=== PATIENT | female | born 2000 | race Caucasian/White ===

== ENCOUNTER 2021-04-25 00:27 | Inpatient (IN) ==
[2021-04-25] MEDS ORDERED: miSOPROStoL 50 MCG TAB PO ONE (01:12)
[2021-04-25] MEDS ORDERED: OXYTOCIN 30 UNITS/500 ML BAG IV PRN ×2 (01:12→01:31)
--- NOTE | 2021-04-25 01:31 | History & Physical Report ---
Date of Service April 25, 2021 Assessment & Plan (1) Spontaneous rupture of amniotic membranes: Plan: 20-year-old at 40 weeks and 1 day gestation presenting with SROM, Vital signs stable afebrile, heart rate reassuring, GBS negative, Irregular contraction pattern, Plan to admit, monitor, IV fluids, labs. Discussed to augment labor with low-dose Pitocin to decrease latency and risk of intermittent infection. Patient desires augmentation of labor with Pitocin. All questions were answered. History of Present Illness Primary Care Provider: NO PCP Patient is a 20-year-old at 40 weeks and 1 day of gestation who presented to labor and delivery with spontaneous rupture of membranes at 11 PM on April 24. It was a big gush and has been trickling clear fluid since then. Denies vaginal bleeding, abdominal pain, fever chills, nausea vomiting. She reports good movements. She started to feel mild contractions every 4 to 5 minutes. Her has been uncomplicated except tobacco use during . GBS was negative. 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 Beliefs That Will Affect Care: None marital status: Current Living Situation: Family Current Living Situation Comment: Lives with KRISTIN's parents, his 3 sisters, and two children Other Information That Helps Us Care for You: No Feels Safe at Home: Yes Safety Concerns: Feels Safe At This Time Assistive Devices: None CORRECTIONS COUNSELOR History Denies history of STDs including chlamydia gonorrhea or herpes Review of Systems as per Subjective / HPI Physical Exam Constitutional: WD/WN, vitals as above well developed and well nourished Comfortable, no acute not in acute distress Gastrointestinal (Abdomen): Inspection/Auscultation: abdomen normal to inspection and + abdomen distended (Gravid Vladimir 7 pounds) Genitourinary: normal external appearance OB Exam Abdomen: + vertex (Confirmed with bedside ultrasound) Manual OB Exam: + cervical dilation 1 cm, + cervical effacement 80% and + station -2 OB Exam Monitor Tracing: + external uterine monitor used and + category I Results & Data ([facility]) Vital Signs (Past 12 Hours) Vital Signs Temp Pulse Resp BP 04/25/21 00:49 37.3 C 97 H 18 126/75 04/25/21 00:45 37.3 C 97 H 18 126/75
[2021-04-25 01:49] LABS: Hematocrit (blood only) 34.9 % (37-47); Hemoglobin 12.3 g/dL (12.0-16.0); Mean Corpuscular Hgb Conc 35.2 g/dL (32-36); Mean Corpuscular Volume 93.6 fL (80-100); Mean Platelet Volume 10.2 fL (7.4-10.4); Platelet Count 314 K/uL (130-400); RDW Coefficient of Variation 13.1 % (11.5-14.5); RDW Standard Deviation 44.8 fL (36.4-46.3); Red Blood Count 3.73 M/uL (4.2-5.4); White Blood Count 14.75 K/uL (4.8-10.8)
[2021-04-25] MEDS: LACTATED RINGER'S 1,000 ML IV PRN ×4 (02:16→19:42)
[2021-04-25] MEDS ORDERED: BUPIVACAINE 0.25% 30 ML VIAL ONE (04:19)
[2021-04-25] MEDS ORDERED: ePHEDrine sulfate 50 MG/ML AMP ONE (04:19)
[2021-04-25] MEDS ORDERED: fentaNYL citrate 100 MCG/2 ML VIAL ONE (04:19)
[2021-04-25] MEDS ORDERED: SODIUM CHLORIDE 0.9% INJ 10 ML VIAL ONE (04:19)
[2021-04-25] MEDS ORDERED: fentaNYL 2MCG/ML ROPIVACAINE 1.25MG/ML 100 ML BAG EPI ONE (04:20)
[2021-04-25] MEDS ORDERED: ONDANSETRON INJ 2 MG/ML 2 ML VIAL IV PRN (04:37)
[2021-04-25] MEDS ORDERED: ePHEDrine sulfate 50 MG/ML AMP IV PRN (04:37)
[2021-04-25] MEDS ORDERED: NALOXONE HCL 1 MG in SODIUM CHLORIDE 0.9% 1000ML 1,000 ML IV PRN (04:37)
[2021-04-25] MEDS ORDERED: NALBUPHINE HCL INJ 10 MG/ML AMP IV PRN (04:37)
[2021-04-25] MEDS ORDERED: NALOXONE HCL 0.4 MG/1 ML VIAL/CARP IV PRN (04:37)
--- NOTE | 2021-04-25 04:39 | Anesthesiology Consultation ---
Date of Service April 25, 2021 Assessment & Plan (1) Encounter for pre-operative examination: Chart Review Chart Review: Patient NOT seen in Pre Admission Testing and Acceptable Risk for Labor Epidural Consults Requested none History Height/Weight Height: 5 ft 5 in Weight: 86.636 kg Allergies Allergy/AdvReac Type Severity Reaction Status Date / Time cetirizine [From [facility]] Allergy Hives Verified 04/25/21 01:02 Medications Home Medications Medication Instructions Recorded Confirmed Last Taken vit no.95-ferrous 1 tab PO DAILY 04/25/21 04/25/21 04/24/21 fumarate 28 mg-folic acid 800 mcg tablet () Active Medications Generic Name Dose Route Start Last Admin Trade Name Freq PRN Reason Stop Dose Admin Lactated Ringer's 1,000 mls @ 150 mls/hr 04/25/21 01:12 04/25/21 04:29 Lr IV 04/27/21 01:11 999 mls/hr .[id number] PRN Infusion L&D Protocol Protocol Oxytocin 30 units in 500 mls @ 3 mls/hr 04/25/21 01:31 04/25/21 03:30 Pitocin IV 04/27/21 01:30 0.18 units/hr .Q24H PRN 3 mls/hr Labor Induction/Augmentation Titration Protocol 0.18 UNITS/HR Past Medical History Medical History Anxiety Migraine Exercise / Class Metabolic Activity II 4-5 Yardwork/Stairs/Walk up hill Past Anesthesia History No Hx of Anesthesia Complications and No Family Hx of Anesthesia Complications History of PONV No Hx of PONV and No Hx of Motion Sickness Social History Smoking Status: Current every day smoker tobacco type: cigarettes Smoking cigarettes per day: 8 Do You Dip or Chew Tobacco: No Hx Alcohol Use: No Hx Substance Use: No Physical Exam Vital Signs Last Vital Signs Temp 36.9 C 04/25/21 03:00 Pulse 63 04/25/21 04:59 Resp 18 04/25/21 04:27 BP 114/75 04/25/21 04:59 Testing Laboratory Results 04/25/21 01:26
--- NOTE | 2021-04-25 14:42 | Labor Progress Brief Note ---
Date of Service April 25, 2021 Assessment & Plan Admission and Anticipated Discharge Date Admission Date: April 25, 2021 Physical Exam Genitourinary: Manual OB Exam: + cervical dilation 4 cm, + cervical effacement 90% and + station -1 OB Exam Monitor Tracing: + external FHT monitor used, + external uterine monitor used, + category I and + normal FHT variability Results & Data ([facility]) Vital Signs (Past 12 Hours) Vital Signs Temp Pulse Resp BP Pulse Ox 04/25/21 14:41 85 94 04/25/21 14:38 69 98 04/25/21 14:33 74 98 04/25/21 14:32 62 109/64 04/25/21 14:28 66 97 04/25/21 14:23 64 97 04/25/21 14:18 66 98 04/25/21 14:16 63 122/83 04/25/21 14:13 64 97 04/25/21 14:08 66 97 04/25/21 14:03 66 98 04/25/21 14:02 71 122/82 04/25/21 13:58 74 96 04/25/21 13:53 69 98 04/25/21 13:48 64 96 04/25/21 13:46 64 121/75 04/25/21 13:43 70 95 04/25/21 13:38 74 98 04/25/21 13:33 64 96 04/25/21 13:31 56 L 108/59 L 04/25/21 13:28 65 95 04/25/21 13:23 63 96 04/25/21 13:19 65 91 04/25/21 13:18 69 97 04/25/21 13:16 59 L 115/61 04/25/21 13:13 59 L 96 04/25/21 13:08 60 97 04/25/21 13:03 61 95 04/25/21 13:02 60 112/64 04/25/21 12:58 60 97 04/25/21 12:53 64 97 04/25/21 12:48 69 99 04/25/21 12:47 62 119/76 04/25/21 12:43 68 97 04/25/21 12:38 70 97 04/25/21 12:33 36.5 C 69 18 115/67 97 04/25/21 12:28 76 98 04/25/21 12:23 70 97 04/25/21 12:18 63 97 04/25/21 12:17 63 111/51 L 04/25/21 12:16 75 92 04/25/21 12:13 66 96 04/25/21 12:08 57 L 97 04/25/21 12:03 67 105/61 97 04/25/21 12:01 74 92 04/25/21 11:58 63 96 04/25/21 11:53 65 95 04/25/21 11:48 64 96 04/25/21 11:46 66 101/55 L 04/25/21 11:43 57 L 96 04/25/21 11:38 61 96 04/25/21 11:33 63 97 04/25/21 11:31 75 92/50 L 04/25/21 11:28 70 96 04/25/21 11:23 62 97 04/25/21 11:18 71 96 04/25/21 11:17 68 108/59 L 04/25/21 11:14 82 93 04/25/21 11:13 65 96 04/25/21 11:08 81 97 04/25/21 11:03 69 96 04/25/21 11:01 63 116/61 04/25/21 10:58 68 97 04/25/21 10:53 78 98 04/25/21 10:49 82 94 04/25/21 10:48 65 98 04/25/21 10:47 76 112/68 04/25/21 10:43 66 97 04/25/21 10:38 65 98 04/25/21 10:35 82 94 04/25/21 10:33 68 96 04/25/21 10:31 36.5 C 64 18 110/68 04/25/21 10:28 79 98 04/25/21 10:23 73 98 04/25/21 10:18 54 L 96 04/25/21 10:17 60 109/57 L 04/25/21 10:15 64 93 04/25/21 10:13 62 96 04/25/21 10:08 61 96 04/25/21 10:03 59 L 97 04/25/21 10:01 59 L 108/58 L 04/25/21 09:58 62 95 04/25/21 09:53 63 96 04/25/21 09:49 63 94 04/25/21 09:48 61 95 04/25/21 09:46 65 105/55 L 04/25/21 09:43 60 96 04/25/21 09:38 67 96 04/25/21 09:37 62 93 04/25/21 09:33 57 L 97 04/25/21 09:31 60 109/57 L 04/25/21 09:28 61 96 04/25/21 09:23 63 96 04/25/21 09:18 64 96 04/25/21 09:16 60 111/54 L 04/25/21 09:14 66 91 04/25/21 09:13 62 95 04/25/21 09:08 65 95 04/25/21 09:03 64 95 04/25/21 09:02 66 106/59 L 04/25/21 09:01 69 94 04/25/21 08:58 69 95 04/25/21 08:54 68 94 04/25/21 08:53 63 95 04/25/21 08:49 66 94 04/25/21 08:48 65 95 04/25/21 08:46 66 109/54 L 04/25/21 08:43 66 95 04/25/21 08:39 67 94 04/25/21 08:38 71 95 04/25/21 08:33 69 95 04/25/21 08:32 65 94 04/25/21 08:31 65 125/58 L 04/25/21 08:28 66 95 04/25/21 08:26 73 94 04/25/21 08:23 59 L 94 04/25/21 08:19 60 94 04/25/21 08:18 67 95 04/25/21 08:17 64 104/55 L 04/25/21 08:13 68 97 04/25/21 08:08 65 95 04/25/21 08:03 83 97 04/25/21 08:01 62 113/68 04/25/21 07:58 58 L 97 04/25/21 07:56 69 92 04/25/21 07:53 68 95 04/25/21 07:48 70 96 04/25/21 07:46 65 108/56 L 04/25/21 07:43 69 95 04/25/21 07:38 72 97 04/25/21 07:33 72 94 04/25/21 07:31 69 100/61 04/25/21 07:28 67 95 04/25/21 07:23 63 97 04/25/21 07:18 68 96 04/25/21 07:16 64 102/56 L 04/25/21 07:13 80 96 04/25/21 07:08 71 96 04/25/21 07:03 76 96 04/25/21 07:02 68 100/50 L 04/25/21 06:58 74 94 04/25/21 06:53 76 96 04/25/21 06:48 71 96 04/25/21 06:46 56 L 91/53 L 04/25/21 06:43 72 95 04/25/21 06:38 69 96 04/25/21 06:33 69 96 04/25/21 06:32 69 103/52 L 04/25/21 06:28 67 95 04/25/21 06:23 71 96 04/25/21 06:18 70 95 04/25/21 06:17 69 95/52 L 04/25/21 06:13 70 95 04/25/21 06:11 68 94 04/25/21 06:08 66 96 04/25/21 06:03 69 95 04/25/21 06:01 81 111/59 L 04/25/21 05:59 67 94 04/25/21 05:58 69 94 04/25/21 05:54 73 94 04/25/21 05:53 65 96 04/25/21 05:48 75 94 04/25/21 05:46 64 113/55 L 04/25/21 05:43 68 94 04/25/21 05:38 66 95 04/25/21 05:34 71 94 04/25/21 05:33 65 96 04/25/21 05:30 36.5 C 04/25/21 05:29 70 94/50 L 94 04/25/21 05:28 66 95 04/25/21 05:24 75 102/56 L 04/25/21 05:23 72 95 04/25/21 05:19 69 105/55 L 04/25/21 05:18 76 94 04/25/21 05:13 64 116/59 L 97 04/25/21 05:11 71 110/64 04/25/21 05:09 72 97/54 L 04/25/21 05:08 68 96 04/25/21 05:07 68 101/54 L 04/25/21 05:05 76 110/55 L 04/25/21 05:03 79 112/59 L 04/25/21 05:01 61 111/65 04/25/21 04:59 63 114/75 04/25/21 04:57 70 111/68 04/25/21 04:27 71 18 116/63 04/25/21 03:23 81 18 104/55 L 04/25/21 03:00 36.9 C
[2021-04-25] MEDS: fentaNYL 2MCG/ML ROPIVACAINE 1.25MG/ML 100 ML BAG EPI PRN ×2 (14:45→19:43)
--- NOTE | 2021-04-25 23:19 | Labor Progress Brief Note ---
Date of Service April 25, 2021 Assessment & Plan Admission and Anticipated Discharge Date Admission Date: April 25, 2021 Physical Exam Genitourinary: Manual OB Exam: + cervical dilation 9 cm, + cervical effacement 100% and + station + 1 OB Exam Monitor Tracing: + external FHT monitor used, + external uterine monitor used, + category I and + normal FHT variability Results & Data ([facility]) Vital Signs (Past 12 Hours) Vital Signs Temp Pulse Resp BP Pulse Ox 04/25/21 23:14 80 95 04/25/21 23:09 80 93 04/25/21 23:06 36.7 C 18 04/25/21 23:04 79 92 04/25/21 23:03 71 136/61 04/25/21 22:59 77 99 04/25/21 22:57 77 94 04/25/21 22:54 73 98 04/25/21 22:49 81 98 04/25/21 22:47 92 H 134/78 04/25/21 22:44 87 99 04/25/21 22:39 79 99 04/25/21 22:34 81 100 04/25/21 22:31 75 118/70 04/25/21 22:29 68 99 04/25/21 22:26 82 92 04/25/21 22:24 77 99 04/25/21 22:19 63 97 04/25/21 22:17 64 126/80 04/25/21 22:15 60 93 04/25/21 22:14 62 99 04/25/21 22:09 59 L 92 04/25/21 22:04 59 L 96 04/25/21 22:02 54 L 123/67 04/25/21 21:59 60 92 04/25/21 21:58 73 89 L 04/25/21 21:54 52 L 97 04/25/21 21:53 59 L 92 04/25/21 21:49 66 95 04/25/21 21:47 64 114/60 94 04/25/21 21:44 64 96 04/25/21 21:39 65 96 04/25/21 21:34 61 97 04/25/21 21:32 61 114/59 L 04/25/21 21:29 63 95 04/25/21 21:24 67 96 04/25/21 21:20 77 93 04/25/21 21:19 73 97 08/13/21 21:16 68 99/53 L 04/25/21 21:14 70 94 04/25/21 21:09 69 94 04/25/21 21:07 71 94 04/25/21 21:04 73 96 04/25/21 21:02 69 94 04/25/21 21:01 68 99/53 L 04/25/21 20:59 70 94 04/25/21 20:56 71 94 04/25/21 20:54 73 95 04/25/21 20:49 67 97 04/25/21 20:46 74 105/59 L 04/25/21 20:44 70 94 04/25/21 20:39 72 97 04/25/21 20:34 75 98 04/25/21 20:33 71 111/55 L 04/25/21 20:32 36.9 C 18 04/25/21 20:30 98 H 93 04/25/21 20:29 113 H 97 04/25/21 20:24 65 89 L 04/25/21 20:23 62 89 L 04/25/21 20:19 63 96 04/25/21 20:17 67 94 04/25/21 20:16 64 120/77 04/25/21 20:14 60 94 04/25/21 20:10 64 94 04/25/21 20:09 66 100 04/25/21 20:04 60 97 04/25/21 20:03 71 121/66 94 04/25/21 19:59 64 96 04/25/21 19:54 54 L 91 04/25/21 19:52 61 92 04/25/21 19:49 68 99 04/25/21 19:47 73 128/63 04/25/21 19:46 68 93 04/25/21 19:44 62 100 04/25/21 19:41 18 04/25/21 19:40 71 92 04/25/21 19:39 61 98 04/25/21 19:34 62 100 04/25/21 19:33 61 93 04/25/21 19:31 57 L 115/70 04/25/21 19:29 36.7 C 62 18 98 04/25/21 19:28 58 L 93 04/25/21 19:24 58 L 98 04/25/21 19:23 64 91 04/25/21 19:19 62 97 04/25/21 19:17 67 114/70 04/25/21 19:14 56 L 99 04/25/21 19:12 57 L 92 04/25/21 19:09 61 97 04/25/21 19:04 62 94 04/25/21 19:01 62 125/62 04/25/21 18:59 64 95 04/25/21 18:58 66 94 04/25/21 18:54 62 95 04/25/21 18:50 66 94 04/25/21 18:49 60 96 04/25/21 18:46 65 118/64 04/25/21 18:44 56 L 96 04/25/21 18:43 63 91 04/25/21 18:39 63 97 04/25/21 18:37 66 91 04/25/21 18:34 78 90 04/25/21 18:32 65 94 04/25/21 18:31 65 116/61 04/25/21 18:29 66 94 04/25/21 18:25 66 94 04/25/21 18:24 66 94 04/25/21 18:19 65 94 04/25/21 18:17 67 121/64 04/25/21 18:14 66 94 04/25/21 18:11 68 94 04/25/21 18:09 66 96 04/25/21 18:05 68 93 04/25/21 18:04 66 96 04/25/21 18:02 67 116/63 04/25/21 17:59 68 97 04/25/21 17:54 86 91 04/25/21 17:49 74 99 04/25/21 17:48 36.7 C 18 04/25/21 17:47 75 123/60 93 04/25/21 17:44 64 94 04/25/21 17:41 65 94 04/25/21 17:39 67 95 04/25/21 17:34 61 96 04/25/21 17:32 60 120/69 04/25/21 17:29 61 95 04/25/21 17:26 74 94 04/25/21 17:24 59 L 96 04/25/21 17:19 62 96 04/25/21 17:17 57 L 117/73 04/25/21 17:14 67 96 04/25/21 17:11 190 H 90 04/25/21 17:09 69 97 04/25/21 17:05 71 94 04/25/21 17:04 66 97 04/25/21 17:02 72 116/55 L 04/25/21 16:59 70 97 04/25/21 16:54 66 96 04/25/21 16:49 71 96 04/25/21 16:47 79 116/69 04/25/21 16:44 72 97 04/25/21 16:39 69 98 04/25/21 16:34 94 H 98 04/25/21 16:31 70 128/64 04/25/21 16:29 69 97 04/25/21 16:24 73 98 04/25/21 16:19 89 97 04/25/21 16:16 76 124/77 04/25/21 16:14 77 98 04/25/21 16:09 75 99 04/25/21 16:05 78 94 04/25/21 16:04 74 97 04/25/21 16:02 68 124/75 04/25/21 15:59 72 92 04/25/21 15:54 75 99 04/25/21 15:50 79 92 04/25/21 15:49 91 H 96 04/25/21 15:47 81 129/79 04/25/21 15:44 73 98 04/25/21 15:39 69 100 04/25/21 15:34 67 99 04/25/21 15:32 67 126/73 04/25/21 15:29 70 99 04/25/21 15:24 75 87 L 04/25/21 15:23 75 91 04/25/21 15:19 81 99 04/25/21 15:16 81 144/88 H 92 04/25/21 15:13 86 96 04/25/21 15:11 84 91 04/25/21 15:08 90 97 04/25/21 15:06 99 H 90 04/25/21 15:03 103 H 99 04/25/21 15:02 103 H 139/79 04/25/21 15:00 90 91 04/25/21 14:58 91 H 100 04/25/21 14:53 97 H 100 04/25/21 14:48 87 99 04/25/21 14:46 79 129/75 04/25/21 14:43 73 99 04/25/21 14:42 36.6 C 19 04/25/21 14:41 85 94 04/25/21 14:38 69 98 04/25/21 14:33 74 98 04/25/21 14:32 62 109/64 04/25/21 14:28 66 97 04/25/21 14:23 64 97 04/25/21 14:18 66 98 04/25/21 14:16 63 122/83 04/25/21 14:13 64 97 04/25/21 14:08 66 97 04/25/21 14:03 66 98 04/25/21 14:02 71 122/82 04/25/21 13:58 74 96 04/25/21 13:53 69 98 04/25/21 13:48 64 96 04/25/21 13:46 64 121/75 04/25/21 13:43 70 95 04/25/21 13:38 74 98 04/25/21 13:33 64 96 04/25/21 13:31 56 L 108/59 L 04/25/21 13:28 65 95 04/25/21 13:23 63 96 04/25/21 13:19 65 91 04/25/21 13:18 69 97 04/25/21 13:16 59 L 115/61 04/25/21 13:13 59 L 96 04/25/21 13:08 60 97 04/25/21 13:03 61 95 04/25/21 13:02 60 112/64 04/25/21 12:58 60 97 04/25/21 12:53 64 97 04/25/21 12:48 69 99 04/25/21 12:47 62 119/76 04/25/21 12:43 68 97 04/25/21 12:38 70 97 04/25/21 12:33 36.5 C 69 18 115/67 97 04/25/21 12:28 76 98 04/25/21 12:23 70 97 04/25/21 12:18 63 97 04/25/21 12:17 63 111/51 L 04/25/21 12:16 75 92 04/25/21 12:13 66 96 04/25/21 12:08 57 L 97 04/25/21 12:03 67 105/61 97 04/25/21 12:01 74 92 04/25/21 11:58 63 96 04/25/21 11:53 65 95 04/25/21 11:48 64 96 04/25/21 11:46 66 101/55 L 04/25/21 11:43 57 L 96 04/25/21 11:38 61 96 04/25/21 11:33 63 97 04/25/21 11:31 75 92/50 L 04/25/21 11:28 70 96 04/25/21 11:23 62 97
--- NOTE | 2021-04-26 00:16 | Delivery Summary ---
Vaginal Delivery Summary Date of Service April 26, 2021 Vaginal Delivery Summary Delivery note live female over intact perineum ALAN with nuchal cord x1 reduced at delivery of head with delayed cord clamping and Apgars 8/9 weight pending. Cord blood obtained and placenta delivered spontaneously and intact. No tears. EBL 100 ml. Final sponge and instrument count are correct. Mom and baby stable.
[2021-04-26] MEDS ORDERED: SUPERCREAM 0.870% 15 GM JAR EXT PRN (00:20)
[2021-04-26] MEDS ORDERED: DIPHTHERIA/TETANUS/PERTUSSIS 0.5 ML SYR/VIAL IM ONE (00:20)
[2021-04-26] MEDS ORDERED: OXYTOCIN 30 UNITS/500 ML BAG IV PRN (00:20)
[2021-04-26] MEDS ORDERED: bisacodyL 10 MG SUPP PR PRN (00:20)
[2021-04-26] MEDS ORDERED: BENZOCAINE 20% AER SPR 82.5 GM CAN EXT PRN (00:20)
[2021-04-26] MEDS ORDERED: ACETAMINOPHEN 325 MG TAB PO PRN (00:20)
[2021-04-26] MEDS ORDERED: HYDROCORTISONE ACETATE 25 MG SUPP PR PRN (00:20)
[2021-04-26] MEDS: IBUPROFEN 600 MG TAB PO PRN ×4 (01:25→23:08)
[2021-04-26] MEDS: PRENATAL VITAMIN 1 TAB PO SCH (08:17)
[2021-04-26] MEDS: FERROUS SULFATE 325 MG TAB PO SCH (08:17)
[2021-04-26] MEDS: DOCUSATE SODIUM 100 MG CAP PO SCH ×2 (08:17→20:44)
--- NOTE | 2021-04-26 08:57 | Anesthesia Procedure Note ---
Date of Service April 26, 2021 Anesthesia Post Epidural Note Vital Signs Vital Signs: Temp Pulse Resp BP Pulse Ox 36.3 C L 72 18 121/72 86 L 04/26/21 02:59 04/26/21 02:59 04/26/21 02:59 04/26/21 02:59 04/25/21 23:54 Pain Intensity Abdomen: Pain Intensity: 4 Notes Mental Status: alert / awake / arousable and participated in evaluation Nausea / Vomiting: adequately controlled Pain: adequately controlled Airway Patency, RR, SpO2: stable & adequate BP & HR: stable & adequate Hydration State: stable & adequate Neuraxial Anesthesia: was administered and sensory block is resolving Anesthetic Complications: no major complications apparent Epidural: Removed without complications and With tip intact
[2021-04-26] MEDS ORDERED: NON-FORMULARY MEDICATION (Pnv Cmb#95-Ferrous Fumarate-Fa [Prenatal] 28 mg iron- 800 mcg Ta PO SCH (09:00)
[2021-04-27] MEDS: IBUPROFEN 600 MG TAB PO PRN (05:53)
[2021-04-27 06:37] LABS: Hemoglobin 11.4 g/dL (12.0-16.0); Mean Corpuscular Hemoglobin 32.6 pg (25-34); Mean Corpuscular Hgb Conc 34.5 g/dL (32-36); Mean Corpuscular Volume 94.3 fL (80-100); Mean Platelet Volume 10.5 fL (7.4-10.4); Platelet Count 245 K/uL (130-400); RDW Coefficient of Variation 13.5 % (11.5-14.5); RDW Standard Deviation 46.1 fL (36.4-46.3)
[2021-04-27] MEDS: FERROUS SULFATE 325 MG TAB PO SCH (08:10)
[2021-04-27] MEDS: PRENATAL VITAMIN 1 TAB PO SCH (08:10)
[2021-04-27] MEDS: DOCUSATE SODIUM 100 MG CAP PO SCH (08:10)
--- NOTE | 2021-04-27 09:44 | Obstetrical Progress Note ---
Date of Service April 27, 2021 Assessment & Plan Admission and Anticipated Discharge Date Admission Date: April 25, 2021 Subjective Patient is seen and examined. She feels well, no complaints. Desires d/c today Ambulating without dizziness Voiding without difficulty Tolerating regular diet with out N&V Bleeding is minimal No fever/ chills/ CP/ SOB/ N&V/ Leg pain Breast feeding without problems Vital Signs Temp Pulse Resp BP Pulse Ox 04/27/21 08:05 36.4 C L 53 L 20 119/78 04/27/21 00:20 49 L 111/71 04/26/21 22:56 36.7 C 64 16 146/92 H 99 04/26/21 20:30 36.8 C 60 16 126/85 98 04/26/21 15:25 36.8 C 62 16 123/82 100 04/26/21 11:20 36.8 C 62 18 113/74 Lab Results 04/25/21 04/25/21 04/25/21 Range/Units 01:26 01:30 01:30 WBC 14.75 H (4.8-10.8) K/uL RBC 3.73 L (4.2-5.4) M/uL Hgb 12.3 (12.0-16.0) g/dL Hct 34.9 L (37-47) % MCV 93.6 (80-100) fL MCH 33.0 (25-34) pg MCHC 35.2 (32-36) g/dL RDW Std Deviation 44.8 (36.4-46.3) fL RDW Coeff of Ramona 13.1 (11.5-14.5) % Plt Count 314 (130-400) K/uL MPV 10.2 (7.4-10.4) fL COVID-19 Eval Order Covid19 IDNow atMRIC SARS-CoV-2, RNA, NAAT NEGATIVE (NEGATIVE) 04/27/21 Range/Units 06:20 WBC 14.40 H (4.8-10.8) K/uL RBC 3.50 L (4.2-5.4) M/uL Hgb 11.4 L (12.0-16.0) g/dL Hct 33.0 L (37-47) % MCV 94.3 (80-100) fL MCH 32.6 (25-34) pg MCHC 34.5 (32-36) g/dL RDW Std Deviation 46.1 (36.4-46.3) fL RDW Coeff of Ramona 13.5 (11.5-14.5) % Plt Count 245 (130-400) K/uL MPV 10.5 H (7.4-10.4) fL COVID-19 Eval Order SARS-CoV-2, RNA, NAAT (NEGATIVE) PE: General: Alert, orientedx3, NAD Abd: soft, NT, fundus firm, below Umbilicus Perineum intact, Lochia rubra minimal Ext; NT, no edema AP: 20 yo s/p , ppd# 1 VSS Afebrile doing well Continue routine care All questions were answered Discussed when to call D/C home , f/u in office Results & Data ([facility]) Vital Signs (Past 12 Hours) Vital Signs Temp Pulse Resp BP Pulse Ox 04/27/21 08:05 36.4 C L 53 L 20 119/78 04/27/21 00:20 49 L 111/71 04/26/21 22:56 36.7 C 64 16 146/92 H 99
[2021-04-27] MEDS ORDERED: bisacodyL 5 MG TABEC PO SCH (20:00)
== END 2021-04-27 13:15 | disposition home or self-care (01) | DRG 807 ==
LOC: OPB 00:27 → 4S1 00:42 → 4S2 04-26 03:08

== ENCOUNTER 2025-04-06 00:29 | Inpatient (IN) ==
[2025-04-06] MEDS ORDERED: OXYTOCIN 30 UNITS/NSS 30 UNITS/500 ML BAG IV PRN ×2 (00:50→10:00)
[2025-04-06] MEDS ORDERED: CALCIUM CARBONATE 500 MG CHEWABLE TAB PO PRN (00:50)
[2025-04-06] MEDS ORDERED: ACETAMINOPHEN 500 MG TAB PO PRN (00:50)
[2025-04-06] MEDS ORDERED: LIDOCAINE 1% LOCAL 20 ML VIAL INFIL PRN (00:50)
[2025-04-06] MEDS: LACTATED RINGER'S 1,000 ML IV PRN (01:00)
--- NOTE | 2025-04-06 01:00 | History & Physical Report ---
Date of Service April 06, 2025 Assessment & Plan (1) Uterine contractions at greater than 20 weeks of gestation: (2) Post-term , 40-42 weeks of gestation: Plan: 24-year-old -0-0-1 at 40 weeks and 6 days of gestation presenting today with irregular contractions, Vital signs stable afebrile, GBS positive, Cervix favorable, heart rate with normal baseline, minimal variability, positive acceleration with scalp stimulation, no decelerations, plan to admit, monitor continuously, labs, IV fluid bolus, penicillin for GBS and reevaluate for heart rate variability, all questions were answered. (3) Use of nicotine during : (4) Current every day nicotine vaping: History of Present Illness Primary Care Provider: Izzy Morgan MD patient is a 24-year-old , at 40 weeks and 6 days of gestation who has been feeling contractions since 9 PM last night. They have been coming every 3 to 4 minutes and became more painful. She denies leakage of fluid or vaginal bleeding. She reports good movements. Her has been complicated by, 1. Vaping during , nicotine, 2. History of marijuana use, patient states she stopped using couple months ago, 3. GBS positive she was on Valtrex p.o. for cold sores/labial herpes for 2 days and stopped. Denies any history of genital herpes. Allergies Allergy/AdvReac Type Severity Reaction Status Date / Time cetirizine [From [facility]] Allergy Hives Verified 08/17/21 00:54 Home Medications Medication Instructions Recorded Confirmed Type Oral Contraceptive 1 tab PO DAILY 08/17/21 08/17/21 History amoxicillin 875 mg-potassium 1 tab PO Q12H #20 tabs 08/17/21 Rx clavulanate 125 mg tablet (Augmentin) acetaminophen 500 mg tablet 1,000 mg (2 x 500 mg) PO Q8H PRN 05/14/23 Rx fever or pain #30 tabs ibuprofen 800 mg tablet 800 mg PO Q8H PRN pain #30 tabs 05/14/23 Rx Patient History Medical History Encounter for pre-operative examination Spontaneous rupture of amniotic membranes Anxiety Migraine Surgical History No pertinent past surgical history Social History Smoking Status: Current every day smoker Tobacco Type: E-cigarettes / Vaping Cigarettes Per Day: 8; Do You Dip or Chew Tobacco: No; Hx Alcohol Use: No Hx Substance Use: No Preferred Language: Mongolian Matrix Supervisor Required: No Beliefs That Will Affect Care: None marital status: Current Living Situation: Family Current Living Situation Comment: Lives with KRISTIN's parents, his 3 sisters, and two children Feels Safe at Home: Yes Assistive Devices: None OB History full-term in 2020, no complications [employer] History denies any history of STDs, denies history of chlamydia, gonorrhea, genital herpes Review of Systems as per Subjective / HPI Physical Exam Constitutional: WD/WN, vitals as above well developed, well nourished and comfortable Gastrointestinal (Abdomen): normal bowel sounds, soft, nontender, no hepatosplenomegaly ( Gravid) Genitourinary: normal external appearance OB Exam Abdomen: + vertex Manual OB Exam: + cervical dilation 2 cm (2-3), + cervical effacement 70% and + station -2 OB Exam Monitor Tracing: + external FHT monitor used ( baseline 130s, min. variability, + acceleration with scalp stim) and + external uterine monitor used Results & Data Vital Signs (Past 12 Hours) Vital Signs Pulse BP 04/06/25 00:40 78 134/82
[2025-04-06] MEDS: PENICILLIN GK 6 MU in DEXTROSE 5% 250 ML IV STA (01:11)
[2025-04-06 01:15] LABS: Hematocrit (blood only) 33.6 % (37.0-47.0); Hemoglobin 11.8 g/dl (12.0-16.0); Mean Corpuscular Hemoglobin 32.5 pg (25.0-34.0); Mean Corpuscular Volume 92.6 fL (80.0-100.0); Platelet Count 259 K/uL (130-400); RDW Standard Deviation 43.0 fL (36.4-46.3); Red Blood Count 3.63 M/uL (4.20-5.40); White Blood Count 13.46 K/ul (4.8-10.8)
[2025-04-06 01:32] LABS: Alanine Aminotransferase 11 U/L (7-52); Albumin Globulin Ratio 1.1 (0.9-2); Alkaline Phosphatase 188 U/L (34-104); Anion Gap 7 (3-11); Bilirubin,Total 0.4 mg/dl (0.2-1.0); Blood Urea Nitrogen 6 mg/dl (6-23); Calcium 8.7 mg/dl (8.6-10.3); Carbon Dioxide 21 mmol/L (21-32); Chloride 107 mmol/L (98-107); Globulin 2.9 gm/dl (2.5-4.0); Glucose 83 mg/dl (70-99(Fasting)); Potassium 3.9 mmol/L (3.5-5.1); Sodium 135 mmol/L (136-145); Total Protein 6.1 gm/dl (6.0-8.3)
--- NOTE | 2025-04-06 01:51 | Obstetrical Progress Note ---
Date of Service April 06, 2025 Assessment & Plan Admission and Anticipated Discharge Date Admission Date: April 06, 2025 Subjective FHR had multiple accelerations after IVF and PO orange juice She thinks contractions spaced out. Feels kicks 1st dose of PCN is being given Plan to start Oxytocin with 2nd dose of PCN Continue to monitor closely Results & Data Vital Signs (Past 12 Hours) Vital Signs Temp Pulse Resp BP 04/06/25 01:14 36.6 C 78 16 134/82 04/06/25 00:40 78 134/82
[2025-04-06 02:37] LABS: Amphetamines+Metham, Urine Neg (Neg); MDMA (Ecstacy), Urine Neg (Neg); Marijuana, Urine Neg (Neg)
[2025-04-06] MEDS ORDERED: NALBUPHINE HCL INJ 10 MG/ML AMP IV PRN (03:18)
[2025-04-06] MEDS ORDERED: ROPIVACAINE 0.5% PF 5 MG/ML 20 ML VIAL EPI PRN (03:18)
[2025-04-06] MEDS ORDERED: NALOXONE HCL 1 MG in SODIUM CHLORIDE 0.9% 1,000 ML IV PRN (03:18)
[2025-04-06] MEDS ORDERED: fentANYL 2 MCG/ML BUPIVacaine 0.125%-NSS 100ML BAG EPI PRN (03:18)
[2025-04-06] MEDS ORDERED: diphenhydrAMINE 50 MG/ML VIAL IV PRN (03:18)
[2025-04-06] MEDS ORDERED: NALOXONE HCL 0.4 MG/1 ML VIAL/CARP IV PRN (03:18)
[2025-04-06] MEDS ORDERED: SODIUM CHLORIDE 0.9% PF INJ 10 ML VIAL EPI PRN (03:18)
[2025-04-06] MEDS ORDERED: LIDOCAINE 2% MPF LOCAL 5 ML VIAL EPI PRN (03:18)
--- NOTE | 2025-04-06 03:19 | Anesthesiology Consultation ---
Date of Service April 06, 2025 Assessment & Plan Chart Review Chart Review: Patient NOT seen in Pre Admission Testing and Acceptable Risk for Labor Epidural Consults Requested none ASA ASA2 Proposed Anesthesia Anesthesia Type: Labor Epidural Risk / Benefits Reviewed With: PT / POA / Parent / Guardian, Accepts Plan and Informed Consent Obtained History Height/Weight Height: 5 ft 5 in Weight: 83.461 kg Allergies Allergy/AdvReac Type Severity Reaction Status Date / Time cetirizine [From [facility]] Allergy Hives Verified 08/17/21 00:54 Medications Home Medications Medication Instructions Recorded Confirmed Last Taken vitamins with calcium 1 tab PO DAILY 04/06/25 04/06/25 1 Day Ago no.72-iron 27 mg-folic acid 1 mg ~04/05/25 tablet (M-Ulises Plus) Active Medications Generic Name Dose Route Start Last Admin Trade Name Freq PRN Reason Stop Dose Admin Lactated Ringer's 1,000 mls @ 150 mls/hr 04/06/25 00:50 04/06/25 01:30 Lr IV 04/08/25 00:49 150 mls/hr .[id number] PRN Infusion L&D Protocol Protocol NPO Date Last Intake of Fluids: 04/06/25 Time Last Intake of Fluids: 03:00 Date Last Intake of Solids: 04/06/25 Time Last Intake of Solids: 00:30 Past Medical History Medical History Encounter for pre-operative examination Spontaneous rupture of amniotic membranes Anxiety Migraine Exercise / Class Metabolic Activity 1 > 8 Run/Swim/Ski/Tennis Past Surgical History Surgical History No pertinent past surgical history Past Anesthesia History No Hx of Anesthesia Complications and No Family Hx of Anesthesia Complications History of PONV No Hx of PONV and No Hx of Motion Sickness Social History Smoking Status: Current every day smoker tobacco type: cigarettes Smoking cigarettes per day: 8 Do You Dip or Chew Tobacco: No Hx Alcohol Use: No Hx Substance Use: Yes substance use type: marijuana Last Used Substance: Unknown Last Used Substance Other:: A couple of months ago. Review of Systems ROS Unobtainable: All systems reviewed & are unremarkable except as noted in HPI & below Physical Exam Vital Signs Last Vital Signs Temp 36.6 C 04/06/25 01:14 Pulse 74 04/06/25 02:01 Resp 16 04/06/25 01:14 BP 131/79 04/06/25 02:01 ENMT Mouth: no TMJ abnormality Thyromental Distance: > or= 3.5 Finger Breadths Mallampati Class: II Neck normal visual inspection and trachea midline; neck extension not limited Respiratory normal respiratory effort Auscultation: lungs clear to auscultation bilaterally Cardiovascular Rate/Rhythm: regular rate and regular rhythm Heart Sounds: no murmur Musculoskeletal Spine: normal cervical ROM Extremities: full ROM of extremities Neurologic moves all extremities Psychiatric Orientation: alert and oriented x 3 Testing Laboratory Results 04/06/25 01:01 04/06/25 01:01
[2025-04-06] MEDS: fentANYL 2 MCG/ML BUPIVacaine 0.125%-NSS 100ML BAG ONE (03:37)
[2025-04-06] MEDS: LIDOCAINE 2%/EPINEPHRINE 1:200,000 20 ML PF EPI STA (03:45)
[2025-04-06] MEDS: BUPIVACAINE 0.25% PF 30 ML VIAL EPI PRN (03:45)
[2025-04-06] MEDS: OXYTOCIN 30 UNITS/NSS 30 UNITS/500 ML BAG IV PRN (05:23)
[2025-04-06] MEDS: PENICILLIN GK 3 MU in DEXTROSE 5% 100 ML IV PRN (05:23)
[2025-04-06] MEDS: BUPIVACAINE 0.25% PF 30 ML VIAL ONE (07:53)
[2025-04-06] MEDS: BUPIVACAINE 0.25% PF 30 ML VIAL EPI STA (07:59)
[2025-04-06] MEDS: SODIUM CHLORIDE 0.9% PF INJ 10 ML VIAL ONE (07:59)
[2025-04-06] MEDS: LIDOCAINE 2%/EPINEPHRINE 1:200,000 20 ML PF ONE (07:59)
[2025-04-06] MEDS: SODIUM CHLORIDE 0.9% PF INJ 10 ML VIAL EPI STA (07:59)
--- NOTE | 2025-04-06 08:54 | Labor Progress Brief Note ---
Date of Service April 06, 2025 Assessment & Plan Admission and Anticipated Discharge Date Admission Date: April 06, 2025 Physical Exam Genitourinary: Manual OB Exam: + cervical dilation 10 cm, + cervical effacement 100%, + station 0 and + amniotic fluid clear OB Exam Monitor Tracing: + external FHT monitor used, + external uterine monitor used, + category I and + normal FHT variability will start to push Results & Data Vital Signs (Past 12 Hours) Vital Signs Temp Pulse Resp BP Pulse Ox O2 Del Method 04/06/25 08:51 73 100 04/06/25 08:46 77 100 04/06/25 08:42 96 H 115/75 04/06/25 08:41 96 H 100 04/06/25 08:36 73 100 04/06/25 08:31 73 100 04/06/25 08:26 71 114/74 100 04/06/25 08:21 73 100 04/06/25 08:16 72 100 04/06/25 08:11 100 04/06/25 08:11 65 04/06/25 08:11 71 114/74 04/06/25 08:06 70 100 04/06/25 08:01 73 100 04/06/25 07:56 69 122/72 100 04/06/25 07:51 65 100 04/06/25 07:46 65 100 04/06/25 07:41 100 04/06/25 07:41 96 H 04/06/25 07:41 66 126/74 04/06/25 07:36 99 H 100 04/06/25 07:35 60 86 L 04/06/25 07:30 59 L 100 04/06/25 07:26 62 99/53 L 04/06/25 07:25 65 100 04/06/25 07:20 65 100 04/06/25 07:15 Room Air 04/06/25 07:15 64 100 04/06/25 07:12 73 109/53 L 04/06/25 07:10 36.9 C 70 18 100 04/06/25 07:05 62 100 04/06/25 07:00 84 100 04/06/25 06:56 71 103/58 L 04/06/25 06:55 70 100 04/06/25 06:50 73 100 04/06/25 06:45 75 100 04/06/25 06:44 75 112/65 04/06/25 06:41 71 86/48 L 04/06/25 06:40 73 100 04/06/25 06:35 75 100 04/06/25 06:30 73 100 04/06/25 06:26 68 95/54 L 04/06/25 06:25 70 100 04/06/25 06:20 81 100 04/06/25 06:15 77 100 04/06/25 06:11 78 91/52 L 04/06/25 06:10 82 100 04/06/25 06:05 71 100 04/06/25 06:00 64 100 04/06/25 05:56 68 92/50 L 04/06/25 05:55 73 100 04/06/25 05:50 74 100 04/06/25 05:45 83 100 04/06/25 05:41 65 101/54 L 04/06/25 05:40 66 100 04/06/25 05:35 75 100 04/06/25 05:30 80 100 04/06/25 05:26 42 L 114/56 L 04/06/25 05:25 49 L 100 04/06/25 05:20 53 L 100 04/06/25 05:15 52 L 100 04/06/25 05:11 40 L 114/58 L 04/06/25 05:10 57 L 100 04/06/25 05:05 50 L 100 04/06/25 05:00 55 L 100 04/06/25 04:57 42 L 121/55 L 04/06/25 04:55 50 L 100 04/06/25 04:50 50 L 97 04/06/25 04:45 45 L 97 04/06/25 04:41 45 L 114/56 L 04/06/25 04:40 45 L 97 04/06/25 04:35 43 L 99 04/06/25 04:33 45 L 93 04/06/25 04:29 50 L 99 04/06/25 04:26 38 L 107/55 L 04/06/25 04:24 64 100 04/06/25 04:19 36.6 C 66 15 98 04/06/25 04:14 65 99 04/06/25 04:11 42 L 118/63 04/06/25 04:09 52 L 99 04/06/25 04:07 85 118/58 L 04/06/25 04:05 77 129/59 L 04/06/25 04:04 49 L 99 04/06/25 04:02 86 129/58 L 04/06/25 03:59 77 98 04/06/25 03:58 69 124/60 04/06/25 03:55 90 123/68 04/06/25 03:54 76 99 04/06/25 03:53 72 117/57 L 04/06/25 03:49 69 120/64 98 04/06/25 03:46 66 123/64 04/06/25 03:44 84 99 04/06/25 03:43 69 116/69 04/06/25 03:40 67 120/76 04/06/25 03:39 58 L 97 04/06/25 03:37 71 129/81 04/06/25 03:34 77 140/82 96 04/06/25 02:01 74 131/79 04/06/25 01:14 36.6 C 78 16 134/82 04/06/25 00:40 78 134/82
--- NOTE | 2025-04-06 09:53 | Delivery Summary ---
Vaginal Delivery Summary Date of Service April 06, 2025 Vaginal Delivery Summary live female ALAN over intact perineum with delayed cord clamping and nuchal cord x1 reduced at delivery of head. Apgars 8/9 weight pending. Cord blood obtained followed by spontaneous dewlivery of intact placenta. No tears. QBL 100 ml. Final sponge and instrument count are correct. Mom and baby stable.
[2025-04-06] MEDS ORDERED: HYDROCORTISONE ACETATE 25 MG SUPP PR PRN (10:00)
[2025-04-06] MEDS: DIPHTHER/TETAN/PERTUS Vaccine (Tdap, Adol/Adult) 0.5mL IM ONE (10:31)
[2025-04-06] MEDS: BENZOCAINE 20% SPRY 85 APPLN/85 GM CAN EXT PRN (12:35)
[2025-04-06] MEDS: IBUPROFEN 600 MG TAB PO PRN (13:20)
--- NOTE | 2025-04-06 13:37 | Anesthesia Procedure Note ---
Date of Service April 06, 2025 Anesthesia Post Epidural Note Vital Signs Vital Signs: Temp Pulse Resp BP Pulse Ox O2 Del Method 36.8 C 71 16 125/63 100 Room Air 04/06/25 12:36 04/06/25 12:36 04/06/25 12:36 04/06/25 12:36 04/06/25 09:41 04/06/25 07:15 Pain Intensity Back: Pain Intensity: 0 Notes Mental Status: alert / awake / arousable Nausea / Vomiting: adequately controlled Pain: adequately controlled Airway Patency, RR, SpO2: stable & adequate BP & HR: stable & adequate Hydration State: stable & adequate Neuraxial Anesthesia: was administered and sensory block is resolving Anesthetic Complications: no major complications apparent and Pt Satisfied with anesthetic care Epidural: Removed without complications and With tip intact
--- NOTE | 2025-04-06 14:32 | Electrocardiogram Report ---
Test Reason : Blood Pressure : */* mmHG Vent. Rate : 90 BPM Atrial Rate : 90 BPM P-R Int : 126 ms QRS Dur : 78 ms QT Int : 386 ms P-R-T Axes : 70 70 33 degrees QTcB Int : 472 ms Sinus rhythm with frequent Premature ventricular complexes in a pattern of bigeminy Abnormal ECG No previous ECGs available Confirmed by Kevin Stone ([id number]) on 04/06/2025 2:32:14 PM Referred By: REFERRED SELF Confirmed By: Kevin Stone
[2025-04-06 19:02] VITALS: RESP 16
[2025-04-06] MEDS: ACETAMINOPHEN 325 MG TAB PO PRN (20:19)
[2025-04-06] MEDS: DOCUSATE SODIUM 100 MG CAP PO SCH (20:19)
[2025-04-07 06:40] LABS: Hematocrit (blood only) 30.6 % (37.0-47.0); Hemoglobin 10.6 g/dl (12.0-16.0); Mean Corpuscular Hemoglobin 32.8 pg (25.0-34.0); Mean Corpuscular Volume 94.7 fL (80.0-100.0); Platelet Count 213 K/uL (130-400); RDW Standard Deviation 44.4 fL (36.4-46.3); Red Blood Count 3.23 M/uL (4.20-5.40); White Blood Count 13.37 K/ul (4.8-10.8)
[2025-04-07] MEDS: FERROUS SULFATE 325 MG TAB PO SCH (08:23)
[2025-04-07] MEDS: PRENATAL VITAMIN 1 TAB PO SCH (08:24)
--- NOTE | 2025-04-07 08:37 | Obstetrical Progress Note ---
Date of Service April 07, 2025 Assessment & Plan Admission and Anticipated Discharge Date Admission Date: April 06, 2025 Subjective Patient is seen and examined. She feels well, no complaints. Ambulating without dizziness Voiding without difficulty Tolerating regular diet with out N&V Bleeding is minimal No fever/ chills/ CP/ SOB/ N&V/ Leg pain Breast feeding without problems Vital Signs Temp Pulse Resp BP Pulse Ox O2 Del Method 04/07/25 03:09 36.6 C 63 16 105/71 98 Room Air 04/06/25 22:50 60 16 130/73 99 Room Air Lab Results 04/06/25 04/06/25 04/07/25 Range/Units 00:35 01:01 06:13 WBC 13.46 H 13.37 H (4.8-10.8) K/ul RBC 3.63 L 3.23 L (4.20-5.40) M/uL Hgb 11.8 L 10.6 L (12.0-16.0) g/dl Hct 33.6 L 30.6 L (37.0-47.0) % MCV 92.6 94.7 (80.0-100.0) fL MCH 32.5 32.8 (25.0-34.0) pg MCHC 35.1 34.6 (32.0-36.0) g/dL RDW Std Deviation 43.0 44.4 (36.4-46.3) fL RDW Coeff of Ramona 12.8 12.9 (11.5-14.5) % Plt Count 259 213 (130-400) K/uL MPV 10.6 10.8 (9.4-12.4) fL Sodium 135 L (136-145) mmol/L Potassium 3.9 (3.5-5.1) mmol/L Chloride 107 (98-107) mmol/L Carbon Dioxide 21 (21-32) mmol/L Anion Gap 7 (3-11) BUN 6 (6-23) mg/dl Creatinine 0.43 L (0.6-1.2) mg/dl Est Cr Clr Drug Dosing Not Reportable eGFR 139.20 BUN/Creatinine Ratio 14.0 (10-20) Glucose 83 (70-99(Fasting)) mg/dl Calcium 8.7 (8.6-10.3) mg/dl Total Bilirubin 0.4 (0.2-1.0) mg/dl AST 18 (13-39) U/L ALT 11 (7-52) U/L Alkaline Phosphatase 188 H (34-104) U/L Total Protein 6.1 (6.0-8.3) gm/dl Albumin 3.2 L (3.4-5.0) gm/dl Globulin 2.9 (2.5-4.0) gm/dl Albumin/Globulin Ratio 1.1 (0.9-2) Urine Opiates Screen Neg (Neg) Ur Methadone, Qual Neg (Neg) Urine Fentanyl Screen Neg (Neg) Urine Barbiturates Neg (Neg) Ur Phencyclidine (PCP) Neg (Neg) U Amphetamin/Meth Scrn Neg (Neg) MDMA (Ecstasy) Screen Neg (Neg) U Benzodiazepines Scrn Neg (Neg) Ur Cocaine Metabolite Neg (Neg) U Marijuana (THC) Screen Neg (Neg) Treponema pallidum Ab Negative (Negative) PE: General: Alert, orientedx3, NAD Abd: soft, NT, fundus firm, below Umbilicus Perineum intact, Lochia rubra minimal Ext; NT, no edema AP: 24 yo s/p , ppd# 1 VSS Afebrile doing well Continue routine care Desires d/c today Discussed contraception, wants to start POP, Rx sent All questions were answered D/C home , fu in offcie Results & Data Vital Signs (Past 12 Hours) Vital Signs Temp Pulse Resp BP Pulse Ox O2 Del Method 04/07/25 03:09 36.6 C 63 16 105/71 98 Room Air 04/06/25 22:50 60 16 130/73 99 Room Air
[2025-04-07] MEDS ORDERED: [UNRECOGNIZED DRUG - OTHER] PO SCH (09:00)
[2025-04-07] MEDS ORDERED: PNV CALCIUM IRON FOLIC ACID PO SCH (09:00)
[2025-04-07] MEDS ORDERED: IRON PO SCH (09:00)
[2025-04-07 11:52] VITALS: BP 122/72; PULSE 68; TEMP 97.9; O2SAT 98
== END 2025-04-07 14:00 | disposition home or self-care (01) | DRG 807 ==
LOC: OPB 00:29 → 4S1 00:31 → 4E2 13:31